=== PATIENT | male | born 1940 | race Two or more races ===

== ENCOUNTER → 2020-07-29 10:14 | Outpatient (REF) | payer MEDICARE, SELFPAY ==
--- NOTE | 2020-07-29 10:30 | CA_ITS ---
Transthoracic Echocardiogram Patient (Last, First, Middle): Jerzy Lancaster, Gender: Male Date of : 1940 Age: 79 Procedure Date: 07/29/2020 Procedure Type: Transthoracic Echocardiogram Location: OP Height: 172.72 cm Weight: 63.5 kg BSA: 1.76 m2 Heart Rate: bpm BP: 110 / 70 mmHg Satellite Technician: DSG Referring MD: Cory Denson MD Symptoms: 122,2 Subsequent non-ST elevation (NSTEMI) 125.10 CAD Conclusions: - EF 50-55%. - The entire lateral wall is hypokinetic. Findings Left Ventricle Normal left ventricular cavity size. The left ventricular systolic function is low normal. The visually estimated ejection fraction is between 50-55%. There is evidence of regional wall motion abnormalities. Abnormal diastolic function is noted. Spectral Doppler is indicative of an impaired relaxation filling pattern. E/E prime ratio is between 8 and 15 consistent with indeterminate filling pressures. Wall Motion Rest Echo Findings The entire lateral wall is hypokinetic. Right Ventricle Normal right ventricular cavity size and systolic function. Prior Study Comparison Changes noted compared to prior study dated: 06/19/2020. Inferior wall motion appears improved. Entire lateral wall is hypokinetic. EF low normal. Measurements 2D Systolic Function EF 4C: 63.60 >55% EF 2C: 56.20 >55% EF BiP: 59.50 >55% Mitral Valve MV Pk E: 0.86 MV PK A: 0.91 MV Decel Time: 230.00 E/A: 0.90 E'Lateral: 9.48 E'Medial: 4.74 E/E' Med: 18.20 E/E' Lat: 9.10 PHT: 67.00 MVA PHT: 3.28 Decel [place]: 3.76 Diastolic Function MV Pk E: 0.86 MV Pk A: 0.91 E/A: 0.90 E'Medial: 4.74 E/E' Med: 18.20 E' Laterial: 9.48 E/E' Lat: 9.10 Updated in Other Vendor System with Status of Final Fransico Fajardo MD electronically signed on 07/29/2020 7:13:48 PM with status of Final
== END ==
LOC: HO.CARD 10:14
PROVIDERS: Visit Provider Internal Medicine Cardiovascular Disease
DX: I22.2 Subsequent non-ST elevation (NSTEMI) myocardial infarction (principal); I25.10 Atherosclerotic heart disease of native coronary artery without angina pectoris; I25.5 Ischemic cardiomyopathy
CPT/HCPCS: 93308

== ENCOUNTER → 2020-08-07 09:47 | Outpatient (BNVA) | payer MEDICARE, SELFPAY | PROVIDERS: PCP Internal Medicine; Referring Provider Internal Medicine; Visit Provider Internal Medicine Cardiovascular Disease | DX: I25.10 Atherosclerotic heart disease of native coronary artery without angina pectoris (principal); Z79.899 Other long term (current) drug therapy | CPT/HCPCS: 99212 ==

== ENCOUNTER → 2020-10-14 08:36 | Outpatient (REF) | payer MEDICARE, SELFPAY ==
--- NOTE | 2020-10-14 08:39 | CA_ITS ---
Transthoracic Echocardiogram Patient (Last, First, Middle): Jerzy Lancaster, Gender: Male Date of : 1940 Age: 80 Procedure Date: 10/14/2020 Procedure Type: Transthoracic Echocardiogram Location: OP Height: 172.72 cm Weight: 63.5 kg BSA: 1.76 m2 Heart Rate: bpm BP: 122 / 68 mmHg Surgical Scrub Technologist: Referring MD: Cory Denson MD Symptoms: I25.10 - Atherosclerotic heart disease of [place] coronary artery without angina pectoris Study Quality: Good ECG Rhythm: Sinus Conclusions: - The left ventricular systolic function is low normal. The visually estimated ejection fraction is between 50-55%. - The inferolateral wall is hypokinetic. Findings Left Ventricle Normal left ventricular cavity size. There is normal left ventricular wall thickness. The left ventricular systolic function is low normal. The visually estimated ejection fraction is between 50-55%. There is evidence of regional wall motion abnormalities. Wall Motion Rest Echo Findings The inferolateral wall is hypokinetic. Right Ventricle Normal right ventricular cavity size and systolic function. Prior Study Comparison No significant change compared to prior study dated: 07/29/2020. Measurements 2D Linear Measurements IVSd: 1.06 0.6-0.9/0.6-1.0 cm LVIDd: 4.38 3.9-5.3/4.2-5.9 cm LVIDd Index: 2.49 2.4-3.2/2.2-3.1 cm/m2 LVIDs: 3.25 2.0-3.6 cm LVPWd: 1.10 0.7-1.1 cm LV Mass: 203.53 67-162/88-224 g LV Mass Index: 115.64 43-95/49-115 g/m2 2D Systolic Function EF 4C: 52.20 >55% EF 2C: 50.40 >55% EF BiP: 50.00 >55% Updated in Other Vendor System with Status of Final Sancho Bahena MD electronically signed on 10/14/2020 12:13:37 PM with status of Final
== END ==
LOC: HO.CARD 08:36
PROVIDERS: Visit Provider Internal Medicine Cardiovascular Disease
DX: I25.10 Atherosclerotic heart disease of native coronary artery without angina pectoris (principal)
CPT/HCPCS: 93308

== ENCOUNTER → 2020-10-28 08:54 | Outpatient (BNVA) | payer MEDICARE, SELFPAY | PROVIDERS: PCP Internal Medicine; Visit Provider Internal Medicine Cardiovascular Disease | DX: I25.10 Atherosclerotic heart disease of native coronary artery without angina pectoris (principal); I25.5 Ischemic cardiomyopathy; I10 Essential (primary) hypertension; E78.5 Hyperlipidemia, unspecified | CPT/HCPCS: 99212 ==

== ENCOUNTER 2020-11-20 08:14 | Outpatient (REF) | payer MEDICARE, SELFPAY ==
[2020-11-20 10:03] LABS: MANUAL DIFF FLAG NO
[2020-11-20 10:31] LABS: Basophils Absolute Auto 0.1 X10*3/uL (0.0-0.2); Basophils Percent Auto 0.9 % (0-2); Eosinophils Absolute Auto 0.1 X10*3/uL (0.0-0.4); Hematocrit 40.8 % (42-52); Hemoglobin 13.5 g/dl (14.0-18.0); Imm Gran Abs Auto 0.01 X10*3/uL (0.00-0.03); Imm Gran Pct Auto 0.2 % (0.0-0.4); Lymphocytes Absolute Auto 1.9 X10*3/uL (1.2-4.9); Lymphocytes Percent Auto 28.9 % (20-40); Mean Corpuscular HGB Conc 33.1 g/dl (31.0-36.0); Mean Corpuscular Hemoglobin 30.5 pg (27.0-33.0); Mean Corpuscular Volume 92.1 fL (80-98); Mean Platelet Volume 10.9 fL (9.4-12.4); Monocytes Absolute Auto 0.7 X10*3/uL (0.1-1.2); Monocytes Percent Auto 10.3 % (2-11); Neutrophils Absolute Auto 3.7 X10*3/uL (2.0-8.3); Neutrophils Percent Auto 57.7 % (45-73); Platelet Count 182 X10*3/uL (160-400); Red Blood Count 4.43 X10*6/uL (4.60-5.80); Red Cell Distribution Width 13.9 % (11.0-16.0); White Blood Count 6.4 X10*3/uL (4.8-10.8)
[2020-11-20 10:35] LABS: Anion Gap 12 (12-20); Blood Urea Nitrogen 20 mg/dL (9-16); Calcium 8.5 mg/dL (8.4-10.2); Carbon Dioxide 28 mmol/L (22-29); Chloride 105 mmol/L (96-108); Cholesterol 148 mg/dL; Estimated Glomerular Filt Rate > 60; Glucose Random 104 mg/dL (60-115); HDL Cholesterol 57 mg/dL; LDL Cholesterol Calculated 78 mg/dl; Potassium 4.3 mmol/L (3.3-5.1); Sodium 141 mmol/L (135-145); Triglycerides 66 mg/dL
== END 2020-11-20 08:15 | disposition home or self-care (01) ==
LOC: HO.10HDL 08:14
PROVIDERS: Absent Provider Internal Medicine; Visit Provider Internal Medicine Cardiovascular Disease
DX: I25.10 Atherosclerotic heart disease of native coronary artery without angina pectoris (principal); I10 Essential (primary) hypertension; E78.00 Pure hypercholesterolemia, unspecified; E78.5 Hyperlipidemia, unspecified
CPT/HCPCS: 36415; 80048; 80061; 85025

== ENCOUNTER → 2021-04-21 09:38 | Outpatient (BNVA) | payer MEDICARE, SELFPAY | PROVIDERS: PCP Internal Medicine; Referring Provider Internal Medicine; Visit Provider Internal Medicine Cardiovascular Disease | DX: I25.10 Atherosclerotic heart disease of native coronary artery without angina pectoris (principal); I25.5 Ischemic cardiomyopathy | CPT/HCPCS: 93005; 99212 ==

== ENCOUNTER → 2021-06-04 13:49 | Outpatient (REF) | payer MEDICARE, SELFPAY ==
--- NOTE | 2021-06-04 13:56 | CA_ITS ---
Transthoracic Echocardiogram Patient (Last, First, Middle): Jerzy Lancaster, Gender: Male Date of : 1940 Age: 80 Procedure Date: 06/04/2021 Procedure Type: Transthoracic Echocardiogram Location: OP Height: 172.72 cm Weight: 63.5 kg BSA: 1.76 m2 Heart Rate: bpm BP: 130 / 90 mmHg Earthmoving Labourer: EFRAÍN Referring MD: Cory Denson MD Ware Finisher: Cory Denson MD Symptoms: I25.5 - Ischemic cardiomyopathy Study Quality: Good ECG Rhythm: Sinus Conclusions: - 1. Normal LV systolic function with grade 1 diastolic dysfunction with underlying regional wall motion abnormality suggestive of coronary disease 2. Trace aortic and mild mitral regurgitation 3. Normal RV systolic pressure 4. No pericardial effusion Findings Left Ventricle Normal left ventricular size, thickness, and systolic function. The visually estimated ejection fraction is between 55-60%. There is evidence of regional wall motion abnormalities. Spectral Doppler is indicative of an impaired relaxation filling pattern. Normal left ventricular filling pressures. Evidence suggests grade I (mild) diastolic dysfunction. Wall Motion Rest Echo Findings The basal anterolateral segment is hypokinetic. The basal inferior and basal inferolateral segments are akinetic. All other scored wall segments showed normal motion. Right Ventricle Normal right ventricular cavity size and systolic function. Atria The left atrium is normal in size. There is lipomatous hypertrophy of the interatrial septum. There is no evidence of interatrial shunt. The right atrium is normal in size. Aortic Valve There is mild calcification of the aortic valve. There is no aortic valve stenosis. There is trace (trivial) aortic valve regurgitation. Mitral Valve There is mild anterior mitral leaflet thickening. There is mild mitral annular calcification. There is mild mitral valve regurgitation. There is no mitral valve stenosis. Pulmonic Valve The pulmonic valve was not well visualized. Tricuspid Valve Normal tricuspid valve structure. There is trace tricuspid valve regurgitation. The right ventricular systolic pressure is normal. The right ventricular systolic pressure is 25 mmHg. Normal right atrial pressure. There is no evidence of pulmonary hypertension. Great Vessels All visible segments of the aorta are normal in size. The pulmonary artery was not well visualized. Venous The inferior vena cava is normal in size and collapses greater than 50% with inspiration. Pericardium/Pleural There is no evidence of pericardial effusion. Prior Study Comparison Changes noted compared to prior study dated: 10/14/2020. LV systolic function has marginally improved Measurements 2D Linear Measurements IVSd: 1.02 0.6-0.9/0.6-1.0 cm LVIDd: 4.41 3.9-5.3/4.2-5.9 cm LVIDd Index: 2.51 2.4-3.2/2.2-3.1 cm/m2 LVIDs: 2.90 2.0-3.6 cm LVPWd: 0.82 0.7-1.1 cm Ao Root: 3.40 2.1-3.5 cm LA Diam: 3.60 2.7-3.8/3.0-4.0 cm LAIDs Index: 2.05 1.5-2.3 cm/m2 LV Mass: 165.20 67-162/88-224 g LV Mass Index: 93.86 43-95/49-115 g/m2 LVOT Diam: 2.30 3.0+(-)1.3 cm 2D Systolic Function EF 4C: 52.50 >55% EF 2C: 66.20 >55% EF BiP: 58.20 >55% Mitral Valve MV Pk E: 0.72 MV PK A: 1.11 MV Decel Time: 279.00 E/A: 0.60 E'Lateral: 7.72 E'Medial: 6.64 E/E' Med: 10.80 E/E' Lat: 9.30 PHT: 82.00 MVA PHT: 2.68 Decel [place]: 2.56 Aortic Valve AoV Pk Joselo: 1.15 AoV Mn Joselo: 0.79 AoV VTI: 0.28 AoV Pk Grad: 5.00 Aov Mn Grad: 3.00 GARETH Cont.VTI: 2.99 AI Pk [place]: 4.63 AI [place]: 2.11 LVOT LVOT Pk Joselo: 0.85 LVOT Mn [place]: 0.58 LVOT VTI: 0.20 LVOT Pk Grad: 3.00 LVOT Mn Grad: 2.00 LVOT Diam: 2.30 LVOT Area: 4.15 Diastolic Function MV Pk E: 0.72 MV Pk A: 1.11 E/A: 0.60 E'Medial: 6.64 E/E' Med: 10.80 E' Laterial: 7.72 E/E' Lat: 9.30 Right Ventricle TAPSE (mm): 2.64 TVS' Joselo: 12.70 Tricuspid Valve TR Pk Joselo: 2.36 TR Pk Grad: 22.00 RA Press: 3.00 RVSP: 25.00 Great Vessels Aorta Ao Root-2D: 3.40 2.0-3.7 cm Ao Asc: 3.70 2.1-3.4 cm Ao Arch: 2.90 Updated in Other Vendor System with Status of Final Cory Denson MD electronically signed on 06/05/2021 8:53:33 AM with status of Final
== END ==
LOC: HO.CARD 13:49
PROVIDERS: PCP Internal Medicine; Visit Provider Internal Medicine Cardiovascular Disease
DX: I25.5 Ischemic cardiomyopathy (principal)
CPT/HCPCS: 93306

== ENCOUNTER → 2021-10-21 09:36 | Outpatient (BNVA) | payer MEDICARE, SELFPAY | PROVIDERS: PCP Internal Medicine; Referring Provider Internal Medicine; Visit Provider Internal Medicine Cardiovascular Disease | DX: I25.10 Atherosclerotic heart disease of native coronary artery without angina pectoris (principal); I25.5 Ischemic cardiomyopathy | CPT/HCPCS: 99212 ==

== ENCOUNTER 2021-11-12 07:36 | Outpatient (REF) | payer MEDICARE, SELFPAY ==
[2021-11-12 10:18] LABS: MANUAL DIFF FLAG NO
[2021-11-12 10:22] LABS: Basophils Absolute Auto 0.1 X10*3/uL (0.0-0.2); Eosinophils Absolute Auto 0.1 X10*3/uL (0.0-0.4); Eosinophils Percent Auto 2.2 % (0-4); Hemoglobin 13.2 g/dl (14.0-18.0); Imm Gran Abs Auto 0.01 X10*3/uL (0.00-0.03); Imm Gran Pct Auto 0.2 % (0.0-0.4); Lymphocytes Absolute Auto 2.1 X10*3/uL (1.2-4.9); Lymphocytes Percent Auto 36.3 % (20-40); Mean Corpuscular HGB Conc 32.2 g/dl (31.0-36.0); Mean Corpuscular Hemoglobin 30.3 pg (27.0-33.0); Mean Platelet Volume 11.3 fL (9.4-12.4); Monocytes Absolute Auto 0.6 X10*3/uL (0.1-1.2); Monocytes Percent Auto 10.5 % (2-11); Neutrophils Absolute Auto 2.9 x10*3/uL (2.0-8.3); Neutrophils Percent Auto 49.8 % (45-73); Platelet Count 188 X10*3/uL (160-400); Red Blood Count 4.36 X10*6/uL (4.60-5.80); Red Cell Distribution Width 13.5 % (11.0-16.0); White Blood Count 5.9 X10*3/uL (4.8-10.8)
[2021-11-12 10:31] LABS: Alanine Aminotransferase 27 U/L (0-40); Alkaline Phosphatase 59 U/L (39-117); Anion Gap 12 (12-20); Aspartate Amino Transferase 31 U/L (5-37); Bilirubin Total 0.6 mg/dL (0.0-1.0); Blood Urea Nitrogen 16 mg/dL (9-16); Calcium 9.2 mg/dL (8.4-10.2); Carbon Dioxide 30 mmol/L (22-29); Chloride 104 mmol/L (96-108); Estimated Glomerular Filt Rate 57; Glucose Fasting 109 mg/dL (60-99); Potassium 4.6 mmol/L (3.3-5.1); Sodium 141 mmol/L (135-145); Total Protein 7.5 g/dL (6.5-8.0)
[2021-11-12 10:32] LABS: Cholesterol 136 mg/dL; HDL Cholesterol 53 mg/dL; LDL Cholesterol Calculated 71 mg/dl; Triglycerides 62 mg/dL
[2021-11-12 10:53] LABS: Prostate Specific Antigen Scr 0.67 ng/mL (<0.05-4.0)
== END 2021-11-12 07:37 | disposition home or self-care (01) ==
LOC: HO.10HDL 07:36
PROVIDERS: PCP Internal Medicine; Visit Provider Internal Medicine Cardiovascular Disease
DX: Z12.5 Encounter for screening for malignant neoplasm of prostate (principal); I25.10 Atherosclerotic heart disease of native coronary artery without angina pectoris; E78.00 Pure hypercholesterolemia, unspecified; I10 Essential (primary) hypertension; N40.0 Benign prostatic hyperplasia without lower urinary tract symptoms; E78.5 Hyperlipidemia, unspecified
CPT/HCPCS: 36415; 80053; 80061; 84153; 85025

== ENCOUNTER → 2021-11-18 07:44 | Outpatient (REF) | payer MEDICARE, SELFPAY ==
--- NOTE | 2021-11-18 07:48 | CA_ITS ---
Acquisition Time: 2021-11-18 07:58:12 Total Exercise Time: 00:05:00 Test Indications: Ischemia Evaluation Medications: AMLODIPINE ASA ATORVASTATIN OMEPRAZOLE TAMSULOSIN Protocol: LEWIS Max HR: 144 BPM 102% of Pred: 140 BPM Max BP: 176/058 mmHG Max Work Load: 7.0 METS Exercise stress test with exercise 5 min of Lewis protocol, without anginal symptoms, with report of fatigue, with normotensive response to exercise, with isolated PACs, atrial cuplets and one atrial triplet, with EKG changes meeting criteria for ischemia: up to 1.5mm hortizontal ST depression inferiorly and V3-V6 with gradual resolution in recovery. On arrival to the stress lab heart rate was 120s. He had held Metoprolol x 2 days. He was given a dose of his usual Metoprolol tartrate 50mg and allowed to rest for 20 min. Heart rate into the 90s prior to the start of the test. Test reviewed with Dr Fajardo. Referred By: Cory Denson Overread By: ALEENA LEVY
== END ==
LOC: HO.CARD 07:44
PROVIDERS: PCP Internal Medicine; Visit Provider Internal Medicine Cardiovascular Disease
DX: I25.10 Atherosclerotic heart disease of native coronary artery without angina pectoris (principal)
CPT/HCPCS: 93017

== ENCOUNTER → 2022-04-27 09:28 | Outpatient (BNVA) | payer MEDICARE, SELFPAY | PROVIDERS: PCP Internal Medicine; Referring Provider Internal Medicine; Visit Provider Internal Medicine Cardiovascular Disease | DX: I25.10 Atherosclerotic heart disease of native coronary artery without angina pectoris (principal); I10 Essential (primary) hypertension; Z79.82 Long term (current) use of aspirin; Z79.899 Other long term (current) drug therapy | CPT/HCPCS: 93005; 99212 ==

== ENCOUNTER → 2022-11-02 09:30 | Outpatient (BNVA) | payer MEDICARE, SELFPAY | PROVIDERS: PCP Internal Medicine; Referring Provider Internal Medicine; Visit Provider Internal Medicine Cardiovascular Disease | DX: I25.10 Atherosclerotic heart disease of native coronary artery without angina pectoris (principal); I25.5 Ischemic cardiomyopathy | CPT/HCPCS: 99212 ==

== ENCOUNTER 2023-02-24 05:53 | Outpatient (REF) | payer MEDICARE, SELFPAY ==
[2023-02-24 06:07] LABS: MANUAL DIFF FLAG NO
[2023-02-24 07:22] LABS: Basophils Absolute Auto 0.1 X10*3/uL (0.0-0.2); Eosinophils Absolute Auto 0.3 X10*3/uL (0.0-0.4); Eosinophils Percent Auto 4.6 % (0-4); Hemoglobin 13.2 g/dl (14.0-18.0); Imm Gran Abs Auto 0.02 X10*3/uL (0.00-0.03); Imm Gran Pct Auto 0.3 % (0.0-0.4); Lymphocytes Absolute Auto 2.3 X10*3/uL (1.2-4.9); Mean Corpuscular Hemoglobin 29.9 pg (27.0-33.0); Mean Corpuscular Volume 90.7 fL (80.0-98.0); Monocytes Absolute Auto 0.8 X10*3/uL (0.1-1.2); Neutrophils Absolute Auto 2.4 x10*3/uL (2.0-8.3); Neutrophils Percent Auto 41.1 % (45-73); Platelet Count 180 X10*3/uL (160-400); Red Blood Count 4.41 X10*6/uL (4.60-5.80); Red Cell Distribution Width 13.5 % (11.0-16.0); White Blood Count 5.8 X10*3/uL (4.8-10.8)
[2023-02-24 08:07] LABS: Alanine Aminotransferase 29 U/L (0-40); Alkaline Phosphatase 64 U/L (39-117); Anion Gap 12 (12-20); Aspartate Amino Transferase 32 U/L (5-37); Bilirubin Total 0.7 mg/dL (0.0-1.0); Blood Urea Nitrogen 20 mg/dL (9-16); Calcium 9.5 mg/dL (8.4-10.2); Carbon Dioxide 28 mmol/L (22-29); Chloride 106 mmol/L (96-108); Cholesterol 142 mg/dL; Estimated Glomerular Filt Rate 59; Glucose Fasting 105 mg/dL (60-99); HDL Cholesterol 59 mg/dL; LDL Cholesterol Calculated 71 mg/dl; Potassium 4.4 mmol/L (3.3-5.1); Sodium 142 mmol/L (135-145); Total Protein 7.4 g/dL (6.5-8.0); Triglycerides 62 mg/dL
[2023-02-24 08:22] LABS: Prostate Specific Antigen 0.87 ng/mL (<0.05-4.0)
== END 2023-02-24 05:54 | disposition home or self-care (01) ==
LOC: HO.LAB 05:53
PROVIDERS: PCP Internal Medicine; Visit Provider Internal Medicine
DX: Z00.00 Encounter for general adult medical examination without abnormal findings (principal); Z12.5 Encounter for screening for malignant neoplasm of prostate
CPT/HCPCS: 36415; 80053; 80061; 84153; 85025

== ENCOUNTER → 2023-04-14 08:33 | Outpatient (REF) | payer MEDICARE, SELFPAY | LOC: HO.CARD 08:33 | PROVIDERS: PCP Internal Medicine; Visit Provider Internal Medicine Cardiovascular Disease | DX: I25.5 Ischemic cardiomyopathy (principal) | CPT/HCPCS: 93306 ==

== ENCOUNTER 2023-04-26 09:00 | Outpatient (AMB) | payer MEDICARE, SELFPAY ==
[2023-04-26 09:16] VITALS: BP 120/70; PULSE 63; BMI 23.8
--- NOTE | 2023-04-26 09:16 | MHC.OFFVIS ---
Intake Vital Signs 04/26/23 09:16 Height 5 ft 8 in Weight 156 lb 8.451 oz BMI 23.8 BP 120/70 Blood Pressure Location Lt brachial Position Sitting Pulse 63 Intake Visit Reasons: 6 month f/u after echo Intake Note: 6 month follow-up after echo with ekg Bulldogger Required: No Allergies No Known Allergies Allergy (Verified 11/02/22 09:44) Medication List - Last Reconciled 04/26/23 by Cory Denson MD amlodipine 5 mg PO DAILY aspirin 1 tab PO DAILY atorvastatin 80 mg PO DAILY ezetimibe (Zetia) 10 mg PO DAILY metoprolol tartrate 50 mg PO BID omeprazole 20 mg PO DAILY tamsulosin 0.4 mg PO DAILY HPI HPI Comments History of Present Illness Details 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 He has been doing well. Recent echocardiogram shows stable LV ejection fraction 51% with wall motion abnormality in the circumflex territory. He continues to remain extremely active and has no symptoms of angina or fatigue or shortness of breath it denies any heart failure symptoms. Denies any lightheadedness, syncope. No prolonged palpitations irregular heartbeat. Takes all his medications. Last LDL at 71 mg/dL. [facility] Medical History CAD (coronary artery disease) HTN (hypertension) Hyperlipidemia Ischemic cardiomyopathy Surgical History Hx of cardiac cath Family History Father No problems noted. Mother No problems noted. Social History Household Members: Spouse Housing: House Alcohol intake: never Patient Tobacco Use Status: Never used Tobacco Review of Systems Const Denies chills, Denies fatigue, Denies fever(s), Denies frequent falls, Denies weakness, Denies weight gain and Denies weight loss ENT Denies dizziness Card Denies chest pain, Denies leg edema, Denies lightheadedness, Denies palpitations, Denies dyspnea, Denies dyspnea on exertion, Denies orthopnea and Denies other (loss of consciousness) Resp Denies cough, Denies dyspnea and Denies dyspnea on exertion GI Denies hematochezia and Denies change in stool character Musc Denies abnormal gait, Denies muscle weakness, Denies numbness, Denies radiating pain into limb and Denies tingling Neuro Denies abnormal gait, Denies dizziness, Denies frequent falls, Denies numbness, Denies tingling and Denies weakness Endo Denies fatigue and Denies palpitations Physical Exam Vital Signs: Last Vital Signs Pulse 63 04/26/23 09:16 BP 120/70 04/26/23 09:16 BMI result Body Mass Index 23.8 Const General: cooperative, comfortable, no acute distress, well developed, alert, awake, Physically active and well groomed Nutritional Appearance: average body habitus Orientation/consciousness: patient oriented x3 Limitations: no limitations Neck Neck: Yes trachea midline, Yes supple and Yes no JVD Resp Effort & Inspection: normal respiratory effort Auscultation: clear to auscultation bilaterally Cardio Jugular venous distension: no JVD Palpation: normal PMI Rate: regular rate Rhythm: regular rhythm Heart sounds: S1 normal heart sound present and S2 normal heart sound present GI Auscultation: normal bowel sounds Skin General skin exam: no rashes or lesions noted Neuro General: patient oriented x3 and no focal motor deficits Extrem General: Yes no clubbing, cyanosis or edema Psych Appearance: grossly normal Office Procedures EKG Details: EKG shows normal sinus rhythm with normal EKG [id number], Complete Assessment & Plan Assessment & Plan (1) CAD (coronary artery disease): Code(s): I25.10 - Atherosclerotic heart disease of [place] coronary artery without angina pectoris Plan: CAD with complex coronary artery disease without any symptoms of angina or any restriction to his activity level. He maintains high level of activity. Continue aggressive medical therapy. He has stable coronary artery disease. Continue low-dose aspirin therapy for life. Continue aggressive control blood pressure which is well optimized. Target goal blood pressure less than 130/84. Advised to monitor blood pressure at home and maintain a log. Continue high-intensity statin therapy along with ezetimibe. LDL is currently well optimized. Advised to call me with any new symptoms. (2) Ischemic cardiomyopathy: Code(s): I25.5 - Ischemic cardiomyopathy Plan: Ischemic cardiomyopathy with most recent echocardiogram showing low normal LV ejection fraction which is improved compared to his presentation with acute coronary syndrome in the setting of medical illness. Since then he has been doing well. No signs or symptoms of heart failure. Continue aggressive medical therapy and aggressive treatment of ischemia. Will follow up in the clinic in 6 months time, sooner p.r.n.. Thank you for allowing me to partake in his care Coding Level of Care Code Est Pt Level 4 (66344) Diagnoses CAD (coronary artery disease) I25.10 Ischemic cardiomyopathy I25.5 CPT Codes EKG - CPT: 91727-[id number], Complete ([id number])
== END 2023-04-26 09:42 | disposition home or self-care (01) ==
PROVIDERS: Visit Provider Internal Medicine Cardiovascular Disease
DX: I25.10 Atherosclerotic heart disease of native coronary artery without angina pectoris (principal); I25.5 Ischemic cardiomyopathy
CPT/HCPCS: 93010; 99214

== ENCOUNTER → 2023-04-26 09:00 | Outpatient (BNVA) | payer MEDICARE, SELFPAY | PROVIDERS: Visit Provider Internal Medicine Cardiovascular Disease | DX: I25.10 Atherosclerotic heart disease of native coronary artery without angina pectoris (principal); I25.5 Ischemic cardiomyopathy; Z79.82 Long term (current) use of aspirin; Z79.899 Other long term (current) drug therapy | CPT/HCPCS: 93005; 99212 ==

== ENCOUNTER 2023-08-20 06:10 | Outpatient (REF) | payer MEDICARE, SELFPAY ==
[2023-08-20 06:28] LABS: MANUAL DIFF FLAG NO
[2023-08-20 07:00] LABS: Basophils Absolute Auto 0.1 X10*3/uL (0.0-0.2); Basophils Percent Auto 0.9 % (0-2); Eosinophils Absolute Auto 0.1 X10*3/uL (0.0-0.4); Eosinophils Percent Auto 1.8 % (0-4); Hematocrit 39.6 % (42.0-52.0); Hemoglobin 13.1 g/dl (14.0-18.0); Imm Gran Abs Auto 0.01 X10*3/uL (0.00-0.03); Imm Gran Pct Auto 0.1 % (0.0-0.4); Lymphocytes Absolute Auto 2.2 X10*3/uL (1.2-4.9); Lymphocytes Percent Auto 33.3 % (20-40); Mean Corpuscular HGB Conc 33.1 g/dl (31.0-36.0); Mean Corpuscular Hemoglobin 30.6 pg (27.0-33.0); Mean Corpuscular Volume 92.5 fL (80.0-98.0); Mean Platelet Volume 10.2 fL (9.4-12.4); Monocytes Absolute Auto 0.7 X10*3/uL (0.1-1.2); Monocytes Percent Auto 10.7 % (2-11); Neutrophils Absolute Auto 3.6 x10*3/uL (2.0-8.3); Neutrophils Percent Auto 53.2 % (45-73); Platelet Count 209 X10*3/uL (160-400); Red Blood Count 4.28 X10*6/uL (4.60-5.80); Red Cell Distribution Width 13.7 % (11.0-16.0); White Blood Count 6.7 X10*3/uL (4.8-10.8)
[2023-08-20 07:35] LABS: Anion Gap 9 (12-20); Blood Urea Nitrogen 16 mg/dL (9-16); Carbon Dioxide 28 mmol/L (22-29); Chloride 105 mmol/L (96-108); Estimated Glomerular Filt Rate > 60; Glucose Random 100 mg/dL (60-115); Potassium 4.2 mmol/L (3.3-5.1); Sodium 138 mmol/L (135-145)
== END 2023-08-20 06:11 | disposition home or self-care (01) ==
LOC: HO.LAB 06:10
PROVIDERS: PCP Internal Medicine; Visit Provider Internal Medicine
DX: D64.9 Anemia, unspecified (principal); I25.10 Atherosclerotic heart disease of native coronary artery without angina pectoris; I12.9 Hypertensive chronic kidney disease with stage 1 through stage 4 chronic kidney disease, or unspecified chronic kidney disease; N18.9 Chronic kidney disease, unspecified
CPT/HCPCS: 36415; 80048; 85025

== ENCOUNTER 2023-11-02 09:07 | Outpatient (AMB) | payer MEDICARE, SELFPAY ==
[2023-11-02 09:22] VITALS: BP 136/86; PULSE 84; BMI 23.8
--- NOTE | 2023-11-02 09:22 | MHC.OFFVIS ---
Intake Vital Signs 11/02/23 09:22 Height 5 ft 8 in Weight 156 lb 8.451 oz BMI 23.8 BP 136/86 Blood Pressure Location Lt brachial Position Sitting Pulse 84 Intake Visit Reasons: 6 mth f/up Intake Note: 6 month follow-up feeling good Treasury Management Sales Consultant Required: No Allergies No Known Allergies Allergy (Verified 08/03/23 14:23) Medication List - Last Reconciled 11/02/23 by Cory Denson MD amlodipine 5 mg PO DAILY aspirin 1 tab PO DAILY atorvastatin 80 mg PO DAILY ezetimibe (Zetia) 10 mg PO DAILY metoprolol tartrate 50 mg PO BID 90 days omeprazole 20 mg PO DAILY 90 days tamsulosin 0.4 mg PO DAILY HPI HPI Comments History of Present Illness Details 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 He has been doing well from cardiac perspective. Denies any exertional symptoms. Denies any shortness of breath, orthopnea, PND, leg edema. Denies any prolonged palpitation, lightheadedness, syncope. Takes all his medications. Last LDL in the low 70s. Overall he said physically doing very well. [facility] Medical History (Updated 11/02/23 @ 11:14 by Cory Denson MD) Hyperlipidemia HTN (hypertension) Ischemic cardiomyopathy CAD (coronary artery disease) Surgical History Hx of cardiac cath Family History Father No problems noted. Mother No problems noted. Social History Household Members: Spouse Housing: House Alcohol intake: never Patient Tobacco Use Status: Never used Tobacco Review of Systems Const Denies chills, Denies fatigue, Denies fever(s), Denies frequent falls, Denies weakness, Denies weight gain and Denies weight loss ENT Denies dizziness Card Denies chest pain, Denies leg edema, Denies lightheadedness, Denies palpitations, Denies dyspnea, Denies dyspnea on exertion, Denies orthopnea and Denies other (loss of consciousness) Resp Denies cough, Denies dyspnea and Denies dyspnea on exertion GI Denies hematochezia and Denies change in stool character Musc Denies abnormal gait, Denies muscle weakness, Denies numbness, Denies radiating pain into limb and Denies tingling Neuro Denies abnormal gait, Denies dizziness, Denies frequent falls, Denies numbness, Denies tingling and Denies weakness Endo Denies fatigue and Denies palpitations Physical Exam Vital Signs: Last Vital Signs Pulse 84 11/02/23 09:22 BP 136/86 11/02/23 09:22 BMI result Body Mass Index 23.8 Const General: cooperative, comfortable, no acute distress, well developed, alert, awake, Physically active and well groomed Nutritional Appearance: average body habitus Orientation/consciousness: patient oriented x3 Limitations: no limitations Neck Neck: Yes trachea midline, Yes supple and Yes no JVD Resp Effort & Inspection: normal respiratory effort Auscultation: clear to auscultation bilaterally Cardio Jugular venous distension: no JVD Palpation: normal PMI Rate: regular rate Rhythm: regular rhythm Heart sounds: S1 normal heart sound present and S2 normal heart sound present GI Auscultation: normal bowel sounds Skin General skin exam: no rashes or lesions noted Neuro General: patient oriented x3 and no focal motor deficits Extrem General: Yes no clubbing, cyanosis or edema Psych Appearance: grossly normal Assessment & Plan Assessment & Plan (1) CAD (coronary artery disease): Code(s): I25.10 - Atherosclerotic heart disease of [place] coronary artery without angina pectoris Plan: Coronary artery disease status post two-vessel disease, critical. However he remains asymptomatic at high workload. Could have silent myocardial ischemia. Recommend to continue current dual antianginal therapy with metoprolol and amlodipine. Advised to maintain activity level as tolerated. Continue lifelong aspirin therapy. Continue dual therapy with atorvastatin and ezetimibe to target goal LDL closer to 70 mg/dL. Continue monitor clinically. He is advised to call me with any new symptoms. (2) Ischemic cardiomyopathy: Code(s): I25.5 - Ischemic cardiomyopathy Plan: Mild LV systolic dysfunction with LVEF on the low 50s. No signs or symptoms of heart failure. Has improved with medical therapy most likely metoprolol therapy and treatment of ischemia. If there is worsening LV ejection fraction may need to consider revascularization. This was discussed with him. Continue current medications. Signs and symptoms of heart failure were discussed. Will follow up in the clinic in 6 months time, sooner p.r.n.. Thank you for allowing me to partake in his care Coding Level of Care Code Est Pt Level 4 (16880) Diagnoses CAD (coronary artery disease) I25.10 Ischemic cardiomyopathy I25.5
== END 2023-11-02 10:03 | disposition home or self-care (01) ==
PROVIDERS: PCP Internal Medicine; Visit Provider Internal Medicine Cardiovascular Disease
DX: I25.10 Atherosclerotic heart disease of native coronary artery without angina pectoris (principal); I25.5 Ischemic cardiomyopathy
CPT/HCPCS: 99214

== ENCOUNTER → 2023-11-02 09:07 | Outpatient (BNVA) | payer MEDICARE, SELFPAY | PROVIDERS: PCP Internal Medicine; Visit Provider Internal Medicine Cardiovascular Disease | DX: I25.10 Atherosclerotic heart disease of native coronary artery without angina pectoris (principal); I25.5 Ischemic cardiomyopathy; Z79.899 Other long term (current) drug therapy | CPT/HCPCS: 99212 ==

== ENCOUNTER 2024-04-11 06:12 | Outpatient (REF) | payer MEDICARE, SELFPAY ==
[2024-04-11 06:41] LABS: MANUAL DIFF FLAG NO
[2024-04-11 07:44] LABS: Basophils Absolute Auto 0.1 X10*3/uL (0.0-0.2); Basophils Percent Auto 1.1 % (0-2); Eosinophils Absolute Auto 0.2 X10*3/uL (0.0-0.4); Eosinophils Percent Auto 2.8 % (0-4); Hematocrit 38.4 % (42.0-52.0); Hemoglobin 12.7 g/dl (14.0-18.0); Imm Gran Abs Auto 0.01 X10*3/uL (0.00-0.03); Imm Gran Pct Auto 0.2 % (0.0-0.4); Lymphocytes Percent Auto 37.1 % (20-40); Mean Corpuscular HGB Conc 33.1 g/dl (31.0-36.0); Mean Corpuscular Hemoglobin 30.1 pg (27.0-33.0); Monocytes Absolute Auto 0.7 X10*3/uL (0.1-1.2); Monocytes Percent Auto 13.6 % (2-11); Neutrophils Absolute Auto 2.4 x10*3/uL (2.0-8.3); Neutrophils Percent Auto 45.2 % (45-73); Platelet Count 175 X10*3/uL (160-400); Red Blood Count 4.22 X10*6/uL (4.60-5.80); Red Cell Distribution Width 13.8 % (11.0-16.0); White Blood Count 5.3 X10*3/uL (4.8-10.8)
[2024-04-11 08:00] LABS: Alanine Aminotransferase 22 U/L (0-40); Albumin Level 3.8 g/dL (3.5-5.0); Alkaline Phosphatase 62 U/L (39-117); Anion Gap 12 (12-20); Aspartate Amino Transferase 28 U/L (5-37); Bilirubin Total 0.7 mg/dL (0.0-1.0); Blood Urea Nitrogen 17 mg/dL (9-16); Calcium 9.3 mg/dL (8.4-10.2); Carbon Dioxide 27 mmol/L (22-29); Chloride 105 mmol/L (96-108); Cholesterol 115 mg/dL (<200); Estimated Glomerular Filt Rate 59; Glucose Fasting 118 mg/dL (60-99); HDL Cholesterol 51 mg/dL (>40); LDL Cholesterol Calculated 55 mg/dL (<100); Potassium 4.1 mmol/L (3.3-5.1); Sodium 140 mmol/L (135-145); Total Protein 7.5 g/dL (6.5-8.0); Triglycerides 49 mg/dL (<150)
[2024-04-11 10:52] LABS: Prostate Specific Antigen 1.09 ng/mL (<0.05-4.0)
== END 2024-04-11 06:13 | disposition home or self-care (01) ==
LOC: HO.LAB 06:12
PROVIDERS: PCP Internal Medicine; Visit Provider Internal Medicine
DX: I10 Essential (primary) hypertension (principal); Z12.5 Encounter for screening for malignant neoplasm of prostate; E78.00 Pure hypercholesterolemia, unspecified; D64.9 Anemia, unspecified; I25.10 Atherosclerotic heart disease of native coronary artery without angina pectoris; N40.0 Benign prostatic hyperplasia without lower urinary tract symptoms
CPT/HCPCS: 36415; 80053; 80061; 84153; 85025

== ENCOUNTER → 2024-04-24 07:41 | Outpatient (REF) | payer MEDICARE, SELFPAY ==
--- NOTE | 2024-04-24 07:47 | CA_ITS ---
Transthoracic Echocardiogram Patient (Last, First, Middle): Jerzy Lancaster, Gender: Male Date of : 1940 Age: 83 Procedure Date: 04/24/2024 Procedure Type: Transthoracic Echocardiogram Location: OP Height: 170.18 cm Weight: 68.04 kg BSA: 1.79 m2 Heart Rate: bpm BP: 140 / 82 mmHg Mobile Pet Groomer: EFRAÍN Julio MD: Cory Denson MD Denial Management Representative: Cory Denson MD Symptoms: I25.5 - Ischemic cardiomyopathy Study Quality: Adequate ECG Rhythm: Sinus Conclusions: - 1. Normal LV ejection fraction 55-60% with impaired relaxation filling pattern with underlying regional wall motion abnormality consistent with underlying coronary artery disease 2. Mildly dilated left atrium 3. Mild aortic and mitral regurgitation 4. Normal RV systolic pressure 5. Upper limits of normal ascending aortic size 6. No pericardial effusion Findings Left Ventricle Normal left ventricular size, thickness, and systolic function. The visually estimated ejection fraction is between 55-60%. Spectral Doppler is indicative of an impaired relaxation filling pattern. E/E prime ratio is between 8 and 15 consistent with indeterminate filling pressures. Wall Motion Rest Echo Findings The inferolateral wall, the basal inferior, and basal anterolateral segments are hypokinetic. All other scored wall segments showed normal motion. Right Ventricle Mildly increased right ventricular cavity size. There is normal right ventricular systolic function. Atria The left atrium is mildly dilated. There is lipomatous hypertrophy of the interatrial septum. There is no evidence of interatrial shunt. The right atrium is normal in size. Aortic Valve Normal aortic valve structure and function. There is no aortic valve stenosis. There is mild aortic valve regurgitation. Mitral Valve There is mild anterior and posterior mitral leaflet thickening. There is mild mitral annular calcification. There is mild mitral valve regurgitation. There is no mitral valve stenosis. Pulmonic Valve The pulmonic valve is likely normal. Tricuspid Valve Normal tricuspid valve structure. There is mild tricuspid valve regurgitation. The right ventricular systolic pressure is normal. The right ventricular systolic pressure is 32 mmHg. Normal right atrial pressure. There is no evidence of pulmonary hypertension. Great Vessels The pulmonary artery was not well visualized. There is no dilatation of the ascending aorta measuring 3.50 cm. Small plaque is seen in the sino tubular ridge. Venous The inferior vena cava is normal in size and collapses greater than 50% with inspiration. Pericardium/Pleural There is no evidence of pericardial effusion. Prior Study Comparison Changes noted compared to prior study dated: 04/14/2023. LV systolic function has marginally improved Measurements 2D Linear Measurements IVSd: 1.17 0.6-0.9/0.6-1.0 cm LVIDd: 4.26 3.9-5.3/4.2-5.9 cm LVIDd Index: 2.38 2.4-3.2/2.2-3.1 cm/m2 LVIDs: 2.91 2.0-3.6 cm LVPWd: 1.10 0.7-1.1 cm LA Diam: 3.80 2.7-3.8/3.0-4.0 cm LAIDs Index: 2.12 1.5-2.3 cm/m2 LV Mass: 209.18 67-162/88-224 g LV Mass Index: 116.86 43-95/49-115 g/m2 LVOT Diam: 2.40 3.0+(-)1.3 cm 2D Systolic Function EF 4C: 63.10 >55% EF 2C: 54.20 >55% EF BiP: 59.10 >55% Mitral Valve MV Pk E: 0.92 MV PK A: 1.07 MV Decel Time: 281.00 E/A: 0.90 E'Lateral: 6.96 E'Medial: 6.31 E/E' Med: 14.50 E/E' Lat: 13.20 PHT: 82.00 MVA PHT: 2.68 Decel [place]: 3.26 Aortic Valve AoV Pk Joselo: 1.08 AoV Mn Joselo: 0.77 AoV VTI: 0.29 AoV Pk Grad: 5.00 Aov Mn Grad: 3.00 GARETH Cont.VTI: 3.46 AI Pk Joselo: 4.03 AI [place]: 2.60 LVOT LVOT Pk Joselo: 0.81 LVOT Mn Joselo: 0.52 LVOT VTI: 0.22 LVOT Pk Grad: 3.00 LVOT Mn Grad: 1.00 LVOT Diam: 2.40 LVOT Area: 4.52 Diastolic Function MV Pk E: 0.92 MV Pk A: 1.07 E/A: 0.90 E'Medial: 6.31 E/E' Med: 14.50 E' Laterial: 6.96 E/E' Lat: 13.20 Right Ventricle TAPSE (mm): 27.80 TVS' [place]: 11.10 Tricuspid Valve TR Pk Joselo: 2.69 TR Pk Grad: 29.00 RA Press: 3.00 RVSP: 32.00 Great Vessels Aorta Sinus of Valsalva: 3.30 2.0-3.5 cm Ao Asc: 3.50 2.1-3.4 cm Ao Arch: 2.40 Updated in Other Vendor System with Status of Final Cory Denson MD electronically signed on 04/24/2024 10:09:42 AM with status of Final
== END ==
LOC: HO.CARD 07:41
PROVIDERS: PCP Internal Medicine; Visit Provider Internal Medicine Cardiovascular Disease
DX: I25.5 Ischemic cardiomyopathy (principal)
CPT/HCPCS: 93306

== ENCOUNTER → 2024-04-24 07:47 | Outpatient (BNV) | payer MEDICARE, SELFPAY | PROVIDERS: PCP Internal Medicine; Visit Provider Internal Medicine Cardiovascular Disease | DX: I25.5 Ischemic cardiomyopathy (principal); I35.1 Nonrheumatic aortic (valve) insufficiency; I34.0 Nonrheumatic mitral (valve) insufficiency; I36.1 Nonrheumatic tricuspid (valve) insufficiency | CPT/HCPCS: 93306 ==

== ENCOUNTER 2024-05-02 08:51 | Outpatient (AMB) | payer MEDICARE, SELFPAY ==
[2024-05-02 09:06] VITALS: BP 130/74; PULSE 63; BMI 23.8
--- NOTE | 2024-05-02 09:06 | MHC.OFFVIS ---
Vital Signs 05/02/24 09:06 Height 5 ft 8 in Weight 156 lb 8.451 oz BMI 23.8 BP 130/74 Blood Pressure Location Lt brachial Position Sitting Pulse 63 Intake Visit Reasons: 6 mth sp echo Intake Note: 6 month follow-up with ekg after echo feeling good Biometrics Experimentalist Required: No Allergies No Known Allergies Allergy (Verified 08/03/23 14:23) Medication List - Last Reconciled 05/02/24 by Cory Denson MD amlodipine 5 mg PO DAILY aspirin 1 tab PO DAILY atorvastatin 80 mg PO DAILY ezetimibe (Zetia) 10 mg PO DAILY metoprolol tartrate 50 mg PO BID 90 days omeprazole 20 mg PO DAILY 90 days tamsulosin 0.4 mg PO DAILY HPI Comments Details: 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 Remains extremely active. His echocardiogram shows further improvement in his LV ejection fraction. He denies any anginal symptoms. Denies any heart failure symptoms. Takes all his medications regularly. Denies any prolonged palpitation irregular heartbeat. Denies any lightheadedness, syncope. [facility] Medical History (Updated 11/02/23 @ 11:14 by Cory Denson MD) Hyperlipidemia HTN (hypertension) Ischemic cardiomyopathy CAD (coronary artery disease) Surgical History Hx of cardiac cath Family History Father No problems noted. Mother No problems noted. Social History Household Members: Spouse Housing: House Alcohol intake: never Patient Tobacco Use Status: Never used Tobacco Review of Systems Const Denies chills, Denies fatigue, Denies fever(s), Denies frequent falls, Denies weakness, Denies weight gain and Denies weight loss ENT Denies dizziness Card Denies chest pain, Denies leg edema, Denies lightheadedness, Denies palpitations, Denies dyspnea, Denies dyspnea on exertion, Denies orthopnea and Denies other (loss of consciousness) Resp Denies cough, Denies dyspnea and Denies dyspnea on exertion GI Denies hematochezia and Denies change in stool character Musc Denies abnormal gait, Denies muscle weakness, Denies numbness, Denies radiating pain into limb and Denies tingling Neuro Denies abnormal gait, Denies dizziness, Denies frequent falls, Denies numbness, Denies tingling and Denies weakness Endo Denies fatigue and Denies palpitations Physical Exam Vital Signs: Last Vital Signs Pulse 63 05/02/24 09:06 BP 130/74 05/02/24 09:06 BMI result Body Mass Index 23.8 Const General: cooperative, comfortable, no acute distress, well developed, alert, awake, Physically active and well groomed Nutritional Appearance: average body habitus Orientation/consciousness: patient oriented x3 Limitations: no limitations Neck Neck: Yes trachea midline, Yes supple and Yes no JVD Resp Effort & Inspection: normal respiratory effort Auscultation: clear to auscultation bilaterally Cardio Jugular venous distension: no JVD Palpation: normal PMI Rate: regular rate Rhythm: regular rhythm Heart sounds: S1 normal heart sound present and S2 normal heart sound present GI Auscultation: normal bowel sounds Skin General skin exam: no rashes or lesions noted Neuro General: patient oriented x3 and no focal motor deficits Extrem General: Yes no clubbing, cyanosis or edema Psych Appearance: grossly normal Office Procedures EKG Details: EKG shows NSR with normal EKG [id number], Complete Assessment & Plan Assessment & Plan (1) CAD (coronary artery disease): Code(s): I25.10 - Atherosclerotic heart disease of [place] coronary artery without angina pectoris Category: Medical Plan: CAD with diffuse and significant coronary disease especially in the circumflex territory. Patient has done well with medical therapy. Currently has no symptoms of angina. Continue with aggressive medical therapy. Continue low-dose aspirin therapy life. Continue aggressive blood pressure control on current dual antianginal therapy. Target goal LDL less than 70 mg/dL and continue high-intensity statin therapy. Advised to call me with any new symptoms. (2) Ischemic cardiomyopathy: Code(s): I25.5 - Ischemic cardiomyopathy Category: Medical Plan: Prior ischemic cardiomyopathy with gradually normalized LV systolic function with medical therapy and control of his ischemia. Good prognosis with this was discussed. Continue aggressive treatment of his myocardial ischemia. Signs and symptoms of heart failure were discussed. Maintain activity level as tolerated. Will follow up in the clinic in 6 months time, sooner p.r.n.. Thank you for allowing me to partake in his care Coding Level of Care Code Est Pt Level 4 (11033) Diagnoses CAD (coronary artery disease) I25.10 Ischemic cardiomyopathy I25.5 CPT Codes EKG - CPT: 59172-[id number], Complete ([id number])
== END 2024-05-02 09:37 | disposition home or self-care (01) ==
PROVIDERS: PCP Internal Medicine; Visit Provider Internal Medicine Cardiovascular Disease
DX: I25.10 Atherosclerotic heart disease of native coronary artery without angina pectoris (principal); I25.5 Ischemic cardiomyopathy
CPT/HCPCS: 93010; 99214

== ENCOUNTER → 2024-05-02 08:51 | Outpatient (BNVA) | payer MEDICARE, SELFPAY | PROVIDERS: PCP Internal Medicine; Visit Provider Internal Medicine Cardiovascular Disease | DX: I25.10 Atherosclerotic heart disease of native coronary artery without angina pectoris (principal); I25.5 Ischemic cardiomyopathy; Z79.82 Long term (current) use of aspirin; Z79.899 Other long term (current) drug therapy | CPT/HCPCS: 93005; 99212 ==

== ENCOUNTER 2024-11-09 06:56 | Outpatient (REF) | payer MEDICARE, SELFPAY ==
[2024-11-09 07:14] LABS: MANUAL DIFF FLAG NO
[2024-11-09 07:31] LABS: Basophils Percent Auto 0.6 % (0-2); Eosinophils Absolute Auto 0.1 X10*3/uL (0.0-0.4); Eosinophils Percent Auto 1.2 % (0-4); Hematocrit 40.7 % (42.0-52.0); Hemoglobin 13.5 g/dl (14.0-18.0); Imm Gran Abs Auto 0.02 X10*3/uL (0.00-0.03); Imm Gran Pct Auto 0.3 % (0.0-0.4); Lymphocytes Absolute Auto 2.3 X10*3/uL (1.2-4.9); Lymphocytes Percent Auto 32.5 % (20-40); Mean Corpuscular HGB Conc 33.2 g/dl (31.0-36.0); Mean Corpuscular Volume 90.4 fL (80.0-98.0); Mean Platelet Volume 10.3 fL (9.4-12.4); Monocytes Absolute Auto 0.7 X10*3/uL (0.1-1.2); Monocytes Percent Auto 9.7 % (2-11); Neutrophils Percent Auto 55.7 % (45-73); Platelet Count 224 X10*3/uL (160-400); Red Cell Distribution Width 13.3 % (11.0-16.0); White Blood Count 7.2 X10*3/uL (4.8-10.8)
[2024-11-09 07:55] LABS: Anion Gap 11 (12-20); Blood Urea Nitrogen 17 mg/dL (9-16); Calcium 8.7 mg/dL (8.4-10.2); Carbon Dioxide 26 mmol/L (22-29); Chloride 106 mmol/L (96-108); Estimated Glomerular Filt Rate > 60; Glucose Random 116 mg/dL (60-115); Potassium 4.3 mmol/L (3.3-5.1); Sodium 139 mmol/L (135-145)
== END 2024-11-09 06:57 | disposition home or self-care (01) ==
LOC: HO.LAB 06:56
PROVIDERS: PCP Internal Medicine; Visit Provider Internal Medicine
DX: I10 Essential (primary) hypertension (principal); I25.10 Atherosclerotic heart disease of native coronary artery without angina pectoris
CPT/HCPCS: 36415; 80048; 82378; 85025; 99212

== ENCOUNTER 2024-11-09 08:06 | Outpatient (AMB) | payer MEDICARE, SELFPAY ==
[2024-11-09 09:04] VITALS: BP 130/62; PULSE 81; BMI 24.1
--- NOTE | 2024-11-09 09:04 | MHC.OFFVIS ---
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 Patient was be doing well from cardiac perspective. Denies any exertional chest pain or shortness of breath. He was slowed down a little bit although remains active. Denies any symptoms of orthopnea, PND, leg edema. Takes all his medications. No lightheadedness, syncope. No prolonged palpitation irregular heartbeat. Last LDL of 55 mg/dL, well optimized [facility] Medical History Hyperlipidemia HTN (hypertension) Ischemic cardiomyopathy CAD (coronary artery disease) Surgical History Hx of cardiac cath Family History Father No problems noted. Mother No problems noted. Social History Household Members: Spouse Housing: House Alcohol intake: never Patient Tobacco Use Status: Never used Tobacco Review of Systems Const Denies chills, Denies fatigue, Denies fever(s), Denies frequent falls, Denies weakness, Denies weight gain and Denies weight loss ENT Denies dizziness Card Denies chest pain, Denies leg edema, Denies lightheadedness, Denies palpitations, Denies dyspnea and Denies dyspnea on exertion Resp Denies cough, Denies dyspnea and Denies dyspnea on exertion GI Denies hematochezia Musc Denies abnormal gait, Denies muscle weakness, Denies numbness, Denies radiating pain into limb and Denies tingling Neuro Denies abnormal gait, Denies dizziness, Denies frequent falls, Denies numbness, Denies tingling and Denies weakness Endo Denies fatigue and Denies palpitations Physical Exam Vital Signs: Last Vital Signs Pulse 81 11/09/24 09:04 BP 130/62 11/09/24 09:04 BMI result Body Mass Index 24.1 Const General: cooperative, comfortable, no acute distress, well developed, alert, awake, Physically active and well groomed Nutritional Appearance: average body habitus Orientation/consciousness: patient oriented x3 Limitations: no limitations Neck Neck: Yes trachea midline, Yes supple and Yes no JVD Resp Effort & Inspection: normal respiratory effort Auscultation: clear to auscultation bilaterally Cardio Jugular venous distension: no JVD Palpation: normal PMI Rate: regular rate Rhythm: regular rhythm Heart sounds: S1 normal heart sound present and S2 normal heart sound present GI Auscultation: normal bowel sounds Skin General skin exam: no rashes or lesions noted Neuro General: patient oriented x3 and no focal motor deficits Extrem General: Yes no clubbing, cyanosis or edema Psych Appearance: grossly normal Assessment & Plan Assessment & Plan (1) CAD (coronary artery disease): Code(s): I25.10 - Atherosclerotic heart disease of [place] coronary artery without angina pectoris Category: Medical Plan: Stable coronary artery disease with critical coronary disease but without any symptoms with normalized LV ejection fraction on current medical therapy. Continue aggressive medical therapy with dual antianginal therapy with metoprolol and amlodipine. Continue low-dose aspirin therapy. Continue high-intensity statin therapy and ezetimibe therapy with well optimized LDL in the low 50s. Importance of medical therapy and pathophysiology of atherosclerosis was discussed. Encouraged to maintain activity level as tolerated. (2) HTN (hypertension): Code(s): I10 - Essential (primary) hypertension Category: Medical Plan: Hypertension which is currently well optimized advised to monitor blood pressure at home maintain a log. Goal blood pressure less than 130/84. Low-salt diet was discussed. Continue current therapy. Will follow up in the clinic in 6 months time, sooner p.r.n.. Thank you for allowing me to partake in his care Coding Level of Care Code Est Pt Level 4 (88082) Complex EM visit Add On G2211 Diagnoses CAD (coronary artery disease) I25.10 HTN (hypertension) I10
== END 2024-11-09 09:25 | disposition home or self-care (01) ==
PROVIDERS: PCP Internal Medicine; Visit Provider Internal Medicine Cardiovascular Disease
DX: I25.10 Atherosclerotic heart disease of native coronary artery without angina pectoris (principal); I10 Essential (primary) hypertension
CPT/HCPCS: 99214; G2211

== ENCOUNTER 2025-03-23 12:33 | Outpatient (AMB) | payer MEDICARE, SELFPAY ==
[2025-03-23 13:04] VITALS: BP 132/70; PULSE 68; TEMP 36.6; O2SAT 99; BMI 24.9
--- NOTE | 2025-03-23 13:04 | MHC.PC.OV ---
Vital Signs 03/23/25 13:04 Height 5 ft 8 in Weight 74.389 kg BMI 24.9 BP 132/70 Blood Pressure Location Lt brachial Position Sitting Pulse 68 Pulse Source Pulse Oximeter Temp 97.8 F Temp Source Axillary Pulse Oximetry (%) 99 Oxygen Delivery Method Room Air Intake Visit Reasons: Routine Director Validation Required: No Accompanied by: Self / Same As Patient Allergies No Known Allergies Allergy (Verified 03/23/25 13:07) Tobacco use date assessed: 03/23/25 Fall risk assessment: No Falls in past year Last assessed Fall Risk: 03/23/25 Dental Screening Dental Screen Date: 03/23/25 Did you have a dental visit in the last 12 months?: No Did you have a dental problem in the last 6 months where you did not have access to dental care?: No HPI HPI Comments History of Present Illness Details 84-year-old male with history of coronary artery disease, hypertension, hyperlipidemia, BPH, GERD presents to the office today for management of chronic conditions and to establish care. 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 Hypertension-blood pressure controlled at 132/70. Compliant with amlodipine 2.5 mg daily and metoprolol 50 mg twice daily. BPH-stable on tamsulosin GERD-managed with omeprazole Hyperlipidemia/coronary artery disease-reports a history of demand ischemia secondary to infection several years ago and has since been following with Dr. Denson. Ultimately underwent cardiac catheterization revealing multivessel disease but did not require any stenting. Continue swallowing with Cardiology. Continues on atorvastatin 80 mg, metoprolol 50 mg twice daily, Zetia. He continues being active and plays tennis. Follows a healthy diet. Health maintenance: No longer following for colonoscopies. PSA no longer indicated ROS: General: No fevers, malaise, unintentional weight loss HEENT: No blurred vision, diplopia. No sore throat, nasal congestion, rhinorrhea, sinus pain, ear pain Cardiovascular: No chest pain, palpitations, or leg edema Respiratory: No shortness of breath, wheezing, cough GI: No abdominal pain, nausea, vomiting, diarrhea, constipation, melena, hematochezia : No dysuria, hematuria, increased urinary frequency, decreased urinary output MSK: No myalgia, back pain Neuro: No headaches, weakness, paresthesias Skin: No rashes or lesions EXAM: Constitutional - Awake and Alert, No apparent distress Eyes - PERRL Cardiovascular - S1S2, RRR, No edema Respiratory - Normal lung expansion, Normal respiratory effort, No respiratory distress, CTA bilaterally Extremities - no calf tenderness bilaterally, no swelling Skin - Warm/Dry Neurological - Alert & oriented x3 Psychological - Appropriate affect [facility] Medical History (Updated 03/23/25 @ 13:11 by ANUSHA Rivera) Anemia of chronic disease Hyperlipidemia HTN (hypertension) Ischemic cardiomyopathy CAD (coronary artery disease) Surgical History Hx of cardiac cath Family History Father No problems noted. Mother No problems noted. Social History Household Members: Spouse Housing: House Alcohol intake: never Patient Tobacco Use Status: Never used Tobacco e-Cigarette/Vaping Use: Never Used service: No Current occupational status: retired Cognitive needs: No Hearing needs: No Vision needs: Yes (reading glasses) Questionnaire PHQ-9 Over the last 2 weeks, how often have you been bothered by any of the following problems? 1. Little interest or pleasure in doing things: not at all 2. Feeling down, depressed, or hopeless: not at all 3. Trouble falling or staying asleep, or sleeping too much: not at all 4. Feeling tired or having little energy: not at all 5. Poor appetite or overeating: not at all 6. Feeling bad about yourself - or that you are a failure or have let yourself or your family down: not at all 7. Trouble concentrating on things, such as reading the newspaper or watching television: not at all 8. Moving or speaking so slowly that other people could have noticed. Or the opposite - being so fidgety or restless that you have been moving around a lot more than usual: not at all 9. Thoughts that you would be better off or of hurting yourself in some way: not at all Total score: 0 Source: Developed by Drs. Tan De Jesus, Era Wellington, Madi Harry and colleagues, with an educational elie from [employer]. Thrive Questionnaire Date Thrive assessed: 03/23/25 I am a: Patient Within the past 12 months, did the food you bought not last and you didn't have the money to get more?: Never true Within the past 12 months, did you worry whether your food would run out before you got money to buy more?: Never true Do you have trouble paying for medicines?: No Do you have trouble getting transportation to medical appointments?: No Do you have trouble paying your heating and electricity bill?: No Do you have trouble taking care of your child, family member or friend?: No Do you have trouble with day-to-day activities such as bathing, preparing meals, shopping, managing finances, etc.?: No Are you currently unemployed and looking for a job?: No Are you interested in more education?: No THRIVE Score: 0 AUDIT C Alcohol Use Questionnaire (AUDIT-C) 1. How often do you have a drink containing alcohol?: Never 3. How often do you have six or more drinks on one occasion?: Never Total Score: 0 CHRISTOPHER-7 AMB Questionnaire CHRISTOPHER-7 Date CHRISTOPHER - 7 assessed: 03/23/25 Feeling nervous, anxious, or on edge: 0 = Not at all Not being able to stop or control worryin = Not at all Worrying too much about different things: 0 = Not at all Trouble relaxin = Not at all Being so restless that it is hard to sit still: 0 = Not at all Becoming easily annoyed or irritable: 0 = Not at all Feeling afraid as if something awful might happen: 0 = Not at all Total CHRISTOPHER-7 score (0-4 normal; 5-9 mild; 10-14 moderate; 15-21 severe): 0 Source: Developed by Drs. Tan De Jesus, Era Wellington, Madi Harry and colleagues, with an educational elie from [employer]. Physical exam (Primary Care) Vital Signs: Last Vital Signs Temp 97.8 F 03/23/25 13:04 Pulse 68 03/23/25 13:04 BP 132/70 03/23/25 13:04 Pulse Ox 99 03/23/25 13:04 Oxygen Delivery Method Room Air 03/23/25 13:04 BMI result Body Mass Index 24.9 Tobacco/Smoking Status: Tobacco use Status Tobacco use date assessed 03/23/25 03/23/25 13:09 Patient Tobacco Use Status Never used Tobacco 03/23/25 13:09 e-Cigarette/Vaping Use Never Used 03/23/25 13:09 PHQ-9: PHQ-9 Score PHQ-9: Total score 0 03/23/25 13:09 Thrive Assessment: Date of Thrive Assessment Date Thrive assessed 03/23/25 03/23/25 13:09 Coding Level of Care Code New Pt Level 4 (71474) Complex EM visit Add On G2211 Diagnoses CAD (coronary artery disease) I25.10 Ischemic cardiomyopathy I25.5 HTN (hypertension) I10 Hyperlipidemia E78.5 Anemia of chronic disease D63.8 Assessment & Plan Assessment & Plan (1) CAD (coronary artery disease): Code(s): I25.10 - Atherosclerotic heart disease of [place] coronary artery without angina pectoris Category: Medical Plan: Stable. Continue following with Cardiology. Continue medications as prescribed (2) Ischemic cardiomyopathy: Code(s): I25.5 - Ischemic cardiomyopathy Category: Medical Plan: Stable. Continue following with Cardiology, medications as prescribed (3) HTN (hypertension): Code(s): I10 - Essential (primary) hypertension Category: Medical Plan: Controlled. Continue amlodipine, metoprolol. Low-sodium diet (4) Hyperlipidemia: Code(s): E78.5 - Hyperlipidemia, unspecified Category: Medical Plan: Lipid panel ordered. Continue Zetia, atorvastatin. Diet low in saturated fats and highly processed foods (5) Anemia of chronic disease: Code(s): D63.8 - Anemia in other chronic diseases classified elsewhere Category: Medical Plan: CBC ordered, stable Plan Follow-up in the office in 6 months. We will evaluate renal function, electrolyte levels and blood counts today. Labs to be completed several days prior to next visit as well. Orders: Orders Complete Blood Count Auto Diff Today D63.8 - Anemia in other chronic diseases classified elsewhere Basic Metabolic Panel 6 Months D63.8 - Anemia in other chronic diseases classified elsewhere, I25.10 - Atherosclerotic heart disease of [place] coronary artery without angina pectoris Basic Metabolic Panel Today D63.8 - Anemia in other chronic diseases classified elsewhere Complete Blood Count Auto Diff 6 Months D63.8 - Anemia in other chronic diseases classified elsewhere, I25.10 - Atherosclerotic heart disease of [place] coronary artery without angina pectoris
== END 2025-03-23 13:35 | disposition home or self-care (01) ==
LOC: HO.HMCHD 12:33
PROVIDERS: PCP Internal Medicine; Visit Provider Physician Assistant
DX: I25.10 Atherosclerotic heart disease of native coronary artery without angina pectoris (principal); I25.5 Ischemic cardiomyopathy; I10 Essential (primary) hypertension; E78.5 Hyperlipidemia, unspecified; D63.8 Anemia in other chronic diseases classified elsewhere

== ENCOUNTER → 2025-03-23 12:33 | Outpatient (BNVA) | payer MEDICARE, SELFPAY | PROVIDERS: PCP Internal Medicine; Visit Provider Physician Assistant | DX: I25.10 Atherosclerotic heart disease of native coronary artery without angina pectoris (principal); I25.5 Ischemic cardiomyopathy; I10 Essential (primary) hypertension; E78.5 Hyperlipidemia, unspecified; D63.8 Anemia in other chronic diseases classified elsewhere; Z79.899 Other long term (current) drug therapy | CPT/HCPCS: 96127; 99202 ==

== ENCOUNTER 2025-05-10 06:12 | Outpatient (REF) | payer MEDICARE, SELFPAY ==
[2025-05-10 06:31] LABS: MANUAL DIFF FLAG NO
[2025-05-10 07:10] LABS: Anion Gap 12 (12-20); Blood Urea Nitrogen 22 mg/dL (9-16); Calcium 8.9 mg/dL (8.4-10.2); Carbon Dioxide 28 mmol/L (22-29); Chloride 106 mmol/L (96-108); Estimated Glomerular Filt Rate 53; Potassium 4.5 mmol/L (3.3-5.1); Sodium 141 mmol/L (135-145)
[2025-05-10 07:14] LABS: Hematocrit 39.5 % (42.0-52.0); Hemoglobin 13.3 g/dl (14.0-18.0); Imm Gran Abs Auto 0.02 X10*3/uL (0.00-0.03); Imm Gran Pct Auto 0.4 % (0.0-0.4); Lymphocytes Absolute Auto 2.5 X10*3/uL (1.2-4.9); Mean Corpuscular HGB Conc 33.7 g/dl (31.0-36.0); Mean Corpuscular Hemoglobin 30.6 pg (27.0-33.0); Mean Corpuscular Volume 91.0 fL (80.0-98.0); NRBC Abs Auto 0.000 X10*3/uL (0.0-0.012); NRBC Pct Auto 0.0 /100WBC (0.0-0.2); Platelet Count 176 X10*3/uL (160-400); Red Blood Count 4.34 X10*6/uL (4.60-5.80); White Blood Count 5.6 X10*3/uL (4.8-10.8)
== END 2025-05-10 06:13 | disposition home or self-care (01) ==
LOC: HO.LAB 06:12
PROVIDERS: PCP Physician Assistant; Visit Provider Physician Assistant
DX: D64.9 Anemia, unspecified (principal)
CPT/HCPCS: 36415; 80048; 85025

== ENCOUNTER 2025-05-16 09:26 | Outpatient (AMB) | payer MEDICARE, SELFPAY ==
[2025-05-16 09:30] VITALS: BP 122/70; PULSE 65; BMI 24.5
--- NOTE | 2025-05-16 09:30 | MHC.OFFVIS ---
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 He continues to remain very active. Continues to play tennis. Patient denies any active chest pain or shortness of breath fatigue. Takes all his medications although not on aspirin therapy for some time he says. Patient denies any heart failure symptoms. Denies any lightheadedness, syncope. Takes high-intensity statin therapy. [facility] Medical History Anemia of chronic disease Hyperlipidemia HTN (hypertension) Ischemic cardiomyopathy CAD (coronary artery disease) Surgical History Hx of cardiac cath Family History Father No problems noted. Mother No problems noted. Social History Household Members: Spouse Housing: House Alcohol intake: never Patient Tobacco Use Status: Never used Tobacco e-Cigarette/Vaping Use: Never Used service: No Current occupational status: retired Cognitive needs: No Hearing needs: No Vision needs: Yes (reading glasses) Review of Systems Const Denies chills, Denies fatigue, Denies fever(s), Denies frequent falls, Denies weakness, Denies weight gain and Denies weight loss ENT Denies dizziness Card Denies chest pain, Denies leg edema, Denies lightheadedness, Denies palpitations, Denies dyspnea, Denies dyspnea on exertion, Denies orthopnea and Denies other (loss of consciousness) Resp Denies cough, Denies dyspnea and Denies dyspnea on exertion GI Denies hematochezia and Denies change in stool character Musc Denies abnormal gait, Denies muscle weakness, Denies numbness, Denies radiating pain into limb and Denies tingling Neuro Denies abnormal gait, Denies dizziness, Denies frequent falls, Denies numbness, Denies tingling and Denies weakness Endo Denies fatigue and Denies palpitations Physical Exam Vital Signs: Last Vital Signs Pulse 65 05/16/25 09:30 BP 122/70 05/16/25 09:30 BMI result Body Mass Index 24.5 Const General: cooperative, comfortable, no acute distress, well developed, alert, awake, Physically active and well groomed Nutritional Appearance: average body habitus Orientation/consciousness: patient oriented x3 Limitations: no limitations Neck Neck: Yes trachea midline, Yes supple and Yes no JVD Resp Effort & Inspection: normal respiratory effort Auscultation: clear to auscultation bilaterally Cardio Jugular venous distension: no JVD Palpation: normal PMI Rate: regular rate Rhythm: regular rhythm Heart sounds: S1 normal heart sound present and S2 normal heart sound present GI Auscultation: normal bowel sounds Skin General skin exam: no rashes or lesions noted Neuro General: patient oriented x3 and no focal motor deficits Extrem General: Yes no clubbing, cyanosis or edema Psych Appearance: grossly normal Office Procedures EKG Details: EKG shows normal sinus rhythm normal EKG [id number], Complete Assessment & Plan Assessment & Plan (1) CAD (coronary artery disease): Code(s): I25.10 - Atherosclerotic heart disease of [place] coronary artery without angina pectoris Category: Medical Plan: CAD with diffuse multivessel disease with prior NSTEMI in his setting of acute medical illness. Patient had LV systolic dysfunction which has now gradually resolved and LV function has normalized with medical therapy. He has no symptoms of angina at high functional workload. Discussed with him about management of stable CAD with aggressive medical therapy. Importance of aspirin therapy was discussed advised him start the same. He said he will do the same. Continue atorvastatin as well as ezetimibe. Annual lipid check should be pursued. Continue current blood pressure medication with amlodipine and metoprolol. He is tolerating this therapy well. Encouraged to maintain activity level as tolerated. Advised to call me with any new symptoms. Will follow up in the clinic in 1 year's time after an echocardiogram. Thank you for allowing me to partake in his care Orders: Orders CA echo transthoracic complete 1 Year I25.5 - Ischemic cardiomyopathy Coding Level of Care Code Est Pt Level 4 (02080) Complex EM visit Add On G2211 Diagnoses CAD (coronary artery disease) I25.10 CPT Codes EKG - CPT: 49569-[id number], Complete ([id number])
== END 2025-05-16 10:08 | disposition home or self-care (01) ==
LOC: HO.HCS 09:26
PROVIDERS: PCP Internal Medicine; Visit Provider Internal Medicine Cardiovascular Disease
DX: I25.10 Atherosclerotic heart disease of native coronary artery without angina pectoris (principal)
CPT/HCPCS: 93010; 99214; G2211

== ENCOUNTER → 2025-05-16 09:26 | Outpatient (BNVA) | payer MEDICARE, SELFPAY | PROVIDERS: PCP Internal Medicine; Visit Provider Internal Medicine Cardiovascular Disease | DX: I25.10 Atherosclerotic heart disease of native coronary artery without angina pectoris (principal) | CPT/HCPCS: 93005; 99212 ==